=== PATIENT | male | born 1970 | race Caucasian/White ===

== ENCOUNTER 2018-10-13 16:28 | Emergency (ER) | payer SELFPAY ==
[~2018-10-13] VITALS: Ht 182.9 cm; Wt 77.7 kg
[2018-10-13 17:26] VITALS: BP 117/62
[2018-10-13] MEDS ORDERED: GABA-531 PO (17:33)
== END 2018-10-13 18:43 | disposition home or self-care (01) ==
LOC: EMS 16:30
DX: F11.10 Opioid abuse, uncomplicated (principal)

== ENCOUNTER 2018-10-26 14:01 | Emergency (ER) | payer OTHER ==
[~2018-10-26] VITALS: Ht 185.4 cm; Wt 75.0 kg
[~2018-10-26 14:01] MED LIST: GABA-531 PO
[2018-10-26] MEDS ORDERED: TRAZ-252 PO (14:10)
[2018-10-26] MEDS ORDERED: KETOROLAC TROMETHAMINE 60 MG/2 ML VIAL IM ONE (14:30)
[2018-10-26] MEDS: HydrOXYzine PAMOATE 50 MG CAPSULE PO ONE ×2 (14:46→14:55)
[2018-10-26 15:23] VITALS: BP 128/73
== END 2018-10-26 15:48 | disposition home or self-care (01) ==
LOC: EMS 14:02
DX: K40.90 Unilateral inguinal hernia, without obstruction or gangrene, not specified as recurrent (principal); R11.10 Vomiting, unspecified; F17.210 Nicotine dependence, cigarettes, uncomplicated; Z98.890 Other specified postprocedural states; Z79.899 Other long term (current) drug therapy
CPT/HCPCS: 96372; 99283; 99406; J1885

== ENCOUNTER 2020-10-19 21:12 | Inpatient (IN) | payer OTHER ==
[~2020-10-19] VITALS: Ht 185.4 cm; Wt 73.5 kg
[~2020-10-19 21:12] MED LIST changes: -GABA-531 PO; +TRAZ-252 PO
[2020-10-19] MEDS ORDERED: DEXTROSE 50%-WATER 25 GM/50 ML SYRINGE IVP ONE (21:45)
[2020-10-19 21:51] LABS: GLUCOMETER DEV NAME(LOC) ERT.5; GLUCOSE,POINT OF CARE 40 MG/DL (70-110)
[2020-10-19 22:26] LABS: BASOPHILS % (AUTO) 0.1 % (0.0-2.0); EOSINOPHILS % (AUTO) 0.1 % (1.0-6.0); HEMATOCRIT 28.2 % (41-53); HEMOGLOBIN 8.8 g/dL (13.5-17.5); LYMPHOCYTES # (AUTO) 2.9 K/uL (1.0-4.8); LYMPHOCYTES % (AUTO) 26.3 % (22.0-44.0); MEAN CORPUSCULAR HEMOGLOBIN 23.8 pg (26.0-34.0); MEAN CORPUSCULAR HGB CONC 31.1 G/dL (31.0-37.0); MEAN CORPUSCULAR VOLUME 77 fL (80-100); MONOCYTES # (AUTO) 0.8 K/uL (0.1-1.0); MONOCYTES % (AUTO) 7.3 % (2.0-9.0); NEUTROPHILS # (AUTO) 7.2 K/uL (1.8-7.7); NEUTROPHILS % (AUTO) 66.2 % (40.0-70.0); PLATELET COUNT (AUTO) 372 K/uL (150-450); RED BLOOD CELL COUNT(AUTO) 3.68 MIL/uL (4.50-5.90); RED CELL DISTRIBUTION WIDTH 17.9 % (11.5-14.5)
[2020-10-19 22:35] LABS: APPEARANCE,URINE CLEAR (CLEAR); BILIRUBIN,URINE NEGATIVE (NEGATIVE); GLUCOSE, URINE (UA) 250 mg/dL (NEGATIVE); KETONES,URINE NEGATIVE (NEGATIVE); LEUKOCYTE ESTERASE ,URINE NEGATIVE (NEGATIVE); NITRATE,URINE NEGATIVE (NEGATIVE); OCCULT BLOOD,URINE LARGE (NEGATIVE); PROTEIN,URINE SEE CONFIRM (NEGATIVE); UROBILINOGEN,URINE 0.2 mg/dL (<=1.0)
[2020-10-19 22:40] LABS: PROTHROMBIN TIME 10.6 SEC (9.4-11.6)
[2020-10-19 22:43] LABS: SULFOSALICYLIC ACID,URINE 4+ (Negative)
[2020-10-19] MEDS ORDERED: NALOXONE HCL 1 MG/ML 2 ML SYG IVP ONE (22:45)
[2020-10-19 22:51] LABS: AMPHET/METH SCREEN,URINE NEGATIVE (NEGATIVE); BARBITURATE SCREEN, URINE NEGATIVE (NEGATIVE); BENZODIAZEPINES SCREEN,URINE POSITIVE (NEGATIVE); CANNABINOID SCREEN,URINE POSITIVE (NEGATIVE); COCAINE SCREEN,URINE NEGATIVE (NEGATIVE); METHADONE SCREEN, URINE POSITIVE (NEGATIVE); OPIATE SCREEN,URINE POSITIVE (NEGATIVE); PHENCYCLIDINE SCREEN,URINE NEGATIVE (NEGATIVE)
[2020-10-19 22:54] LABS: GLUCOMETER DEV NAME(LOC) ERT.5; GLUCOSE,POINT OF CARE 67 MG/DL (70-110)
[2020-10-19 22:58] LABS: RBC,URINE 0-2 /HPF (0-2)
[2020-10-19 22:59] LABS: BACTERIA,URINE Rare /HPF (None Seen)
[2020-10-19 23:11] LABS: B-TYPE NATRIURETIC PEPTIDE 114 pg/mL (0-100)
[2020-10-19 23:22] LABS: ALANINE AMINOTRANSFERASE 33 U/L (12-78); ALBUMIN 0.7 g/dL (3.4-5.0); ALKALINE PHOSPHATASE 141 U/L (46-116); ANION GAP 6 mmol/L (8-16); ASPARTATE AMINOTRANSFERASE 71 U/L (15-37); BILIRUBIN,TOTAL 0.1 mg/dL (0.1-1.0); CALCIUM, TOTAL 7.2 mg/dL (8.8-10.5); CARBON DIOXIDE 28 mmol/L (22-29); CHLORIDE 108 mmol/L (98-107); CREATINE KINASE, TOTAL ONLY 972 U/L (39-308); CREATININE 2.12 mg/dL (0.60-1.30); GLOMERULAR FILTR. RATE CALC 34 mL/min (>60); GLUCOSE,RANDOM 53 mg/dL (70-110); PHOSPHORUS 3.5 mg/dL (2.5-4.9); SODIUM SERUM 142 mmol/L (136-145); TOTAL PROTEIN, SERUM 4.9 g/dL (6.4-8.2); UREA NITROGEN, BLOOD 21 mg/dL (7-18)
[2020-10-19 23:22] LABS: COVID AG,FIA SOURCE NASOPHARYNGEAL
[2020-10-19 23:24] LABS: POTASSIUM 2.4 mmol/L (3.5-5.1)
[2020-10-19] MEDS ORDERED: SODIUM CHLORIDE 0.9% 1,000 ML IV ONE (23:30)
[2020-10-19] MEDS ORDERED: MAGNESIUM SULFATE 1 GM in DEXTROSE 5%-WATER 50 ML IV ONE (23:45)
[2020-10-20] MEDS: POTASSIUM CHLORIDE 20 MEQ ER TABLET PO PRN ×2 (00:04→05:34)
[2020-10-20] MEDS: POTASSIUM CHL 10 MEQ/WATER 50 ML IV PRN ×4 (00:07→11:27)
[2020-10-20] MEDS ORDERED: DEXTROSE 50%-WATER 25 GM/50 ML SYRINGE IVP ONE (00:30)
[2020-10-20 00:36] LABS: GLUCOMETER DEV NAME(LOC) ERT.5; GLUCOSE,POINT OF CARE 50 MG/DL (70-110)
[2020-10-20] MEDS ORDERED: NALOXONE HCL 1 MG/ML 2 ML SYG IVP ONE (03:15)
[2020-10-20] MEDS ORDERED: DEXTROSE 40% LEMON 37.5 GM/TUBE GEL [15 GM GLUCOSE] PO ONE (04:00)
[2020-10-20] MEDS ORDERED: GLUCAGON,HUMAN RECOMBINANT 1 MG VIAL IVP PRN (04:45)
[2020-10-20 05:09] LABS: CALCIUM, TOTAL 7.9 mg/dL (8.8-10.5); CREATININE 1.94 mg/dL (0.60-1.30); MAGNESIUM 2.2 mg/dL (1.80-2.40)
[2020-10-20 05:13] LABS: POTASSIUM 2.9 mmol/L (3.5-5.1)
[2020-10-20] MEDS: DEXTROSE 50%-WATER 25 GM/50 ML SYRINGE IVP PRN ×4 (06:03→20:20)
[2020-10-20 07:20] LABS: GLUCOMETER DEV NAME(LOC) ERT.5; GLUCOSE,POINT OF CARE 89 MG/DL (70-110)
[2020-10-20] MEDS: NALOXONE HCL 0.4 MG/ML VIAL IVP PRN ×2 (07:40→15:00)
[2020-10-20 08:33] LABS: GLUCOMETER DEV NAME(LOC) ERT.5; GLUCOSE,POINT OF CARE 70 MG/DL (70-110)
[2020-10-20 09:59] LABS: GLUCOMETER DEV NAME(LOC) ERT.5; GLUCOSE,POINT OF CARE 63 MG/DL (70-110)
[2020-10-20 11:12] LABS: CALCIUM, TOTAL 7.2 mg/dL (8.8-10.5); CREATININE 1.9 mg/dL (0.60-1.30); PHOSPHORUS 3.8 mg/dL (2.5-4.9)
[2020-10-20 11:14] LABS: POTASSIUM 2.3 mmol/L (3.5-5.1)
[2020-10-20] MEDS: POTASSIUM CHL 10 MEQ/WATER 50 ML IV SCH ×6 (11:57→17:22)
[2020-10-20] MEDS: DEXTROSE 5%-0.45% SODIUM CHL 1,000 ML IV SCH (11:57)
[2020-10-20 12:44] LABS: GLUCOMETER DEV NAME(LOC) ERT.5; GLUCOSE,POINT OF CARE 77 MG/DL (70-110)
[2020-10-20 16:02] LABS: GLUCOMETER DEV NAME(LOC) ERT.5; GLUCOSE,POINT OF CARE 55 MG/DL (70-110)
[2020-10-20 16:22] LABS: GLUCOMETER DEV NAME(LOC) ERT.5; GLUCOSE,POINT OF CARE 124 MG/DL (70-110)
[2020-10-20 17:23] LABS: GLUCOMETER DEV NAME(LOC) ERT.5; GLUCOSE,POINT OF CARE 96 MG/DL (70-110)
[2020-10-20 19:06] LABS: GLUCOMETER DEV NAME(LOC) ERT.5; GLUCOSE,POINT OF CARE 77 MG/DL (70-110)
[2020-10-20] MEDS ORDERED: POTASSIUM CHLORIDE 20 MEQ ER TABLET PO ONE ×2 (20:15→22:00)
[2020-10-20 20:16] LABS: GLUCOMETER DEV NAME(LOC) ERT.5; GLUCOSE,POINT OF CARE 70 MG/DL (70-110)
[2020-10-20 21:28] LABS: GLUCOMETER DEV NAME(LOC) ERT.5; GLUCOSE,POINT OF CARE 126 MG/DL (70-110)
[2020-10-20 23:15] LABS: GLUCOSE,POINT OF CARE 116 MG/DL (70-110)
[2020-10-20 23:49] LABS: GLUCOSE,POINT OF CARE 96 MG/DL (70-110)
[2020-10-21 01:46] LABS: GLUCOSE,POINT OF CARE 89 MG/DL (70-110)
[2020-10-21] MEDS: DEXTROSE 5%-0.45% SODIUM CHL 1,000 ML IV SCH (03:39)
[2020-10-21 03:57] LABS: GLUCOSE,POINT OF CARE 68 MG/DL (70-110)
[2020-10-21] MEDS: DEXTROSE 50%-WATER 25 GM/50 ML SYRINGE IVP PRN (04:07)
[2020-10-21] MEDS: PIPERACILLIN/TAZO 3.375 GM/D5W 50 ML IV SCH ×3 (04:28→18:54)
[2020-10-21] MEDS: CLINDAMYCIN 600 MG/D5% WATER 50 ML IV SCH ×3 (04:28→21:59)
[2020-10-21] MEDS ORDERED: POTASSIUM CHLORIDE 20 MEQ ER TABLET PO ONE (05:00)
[2020-10-21 05:22] LABS: BASOPHILS % (AUTO) 0.8 % (0.0-2.0); EOSINOPHILS % (AUTO) 0.2 % (1.0-6.0); HEMATOCRIT 31.2 % (41-53); HEMOGLOBIN 9.4 g/dL (13.5-17.5); LYMPHOCYTES # (AUTO) 3.4 K/uL (1.0-4.8); LYMPHOCYTES % (AUTO) 23.8 % (22.0-44.0); MEAN CORPUSCULAR HEMOGLOBIN 23.7 pg (26.0-34.0); MEAN CORPUSCULAR HGB CONC 30.3 G/dL (31.0-37.0); MEAN CORPUSCULAR VOLUME 78 fL (80-100); MONOCYTES # (AUTO) 0.7 K/uL (0.1-1.0); MONOCYTES % (AUTO) 5.1 % (2.0-9.0); NEUTROPHILS # (AUTO) 10.1 K/uL (1.8-7.7); NEUTROPHILS % (AUTO) 70.1 % (40.0-70.0); PLATELET COUNT (AUTO) 386 K/uL (150-450); RED BLOOD CELL COUNT(AUTO) 3.98 MIL/uL (4.50-5.90); RED CELL DISTRIBUTION WIDTH 18.1 % (11.5-14.5)
[2020-10-21 05:30] LABS: CALCIUM, TOTAL 7.4 mg/dL (8.8-10.5); CREATININE 1.73 mg/dL (0.60-1.30); MAGNESIUM 1.9 mg/dL (1.80-2.40); POTASSIUM 3.3 mmol/L (3.5-5.1)
[2020-10-21 05:33] LABS: GLUCOSE,POINT OF CARE 140 MG/DL (70-110)
[2020-10-21] MEDS ORDERED: VANCOMYCIN HCL 1.25 GM in DEXTROSE 5%-WATER 250 ML IV ONE (06:00)
[2020-10-21 06:20] LABS: CREATININE,URINE RANDOM 24.1 mg/dL (30.0-125.0)
[2020-10-21 06:36] LABS: ALANINE AMINOTRANSFERASE 26 U/L (12-78); ALKALINE PHOSPHATASE 126 U/L (46-116); ANION GAP 8 mmol/L (8-16); ASPARTATE AMINOTRANSFERASE 47 U/L (15-37); BILIRUBIN,TOTAL 0.1 mg/dL (0.1-1.0); C-REACTIVE PROTEIN QUANT 6.22 mg/dL (0.00-0.30); CALCIUM, TOTAL 7.3 mg/dL (8.8-10.5); CARBON DIOXIDE 24 mmol/L (22-29); CHLORIDE 112 mmol/L (98-107); CREATININE 1.71 mg/dL (0.60-1.30); FERRITIN 406 ng/mL (26-388); GLOMERULAR FILTR. RATE CALC 43 mL/min (>60); GLUCOSE,RANDOM 133 mg/dL (70-110); LACTATE DEHYDROGENASE 194 U/L (85-227); POTASSIUM 3.3 mmol/L (3.5-5.1); SODIUM SERUM 144 mmol/L (136-145); TOTAL PROTEIN, SERUM 4.8 g/dL (6.4-8.2); UREA NITROGEN, BLOOD 13 mg/dL (7-18)
[2020-10-21 06:48] LABS: GLUCOSE,POINT OF CARE 108 MG/DL (70-110)
[2020-10-21 06:50] LABS: ALBUMIN < 0.6 g/dL (3.4-5.0)
[2020-10-21] MEDS ORDERED: SODIUM CHLORIDE 77 MEQ in DEXTROSE 10%-WATER 1,000 ML IV SCH (09:00)
[2020-10-21] MEDS: DEXTROSE 10%-WATER 1,000 ML IV SCH ×2 (09:16→21:59)
[2020-10-21 09:19] LABS: GLUCOSE,POINT OF CARE 78 MG/DL (70-110)
[2020-10-21 10:38] LABS: GLUCOSE,POINT OF CARE 100 MG/DL (70-110)
[2020-10-21 12:33] LABS: GLUCOSE,POINT OF CARE 117 MG/DL (70-110)
[2020-10-21 14:19] VITALS: BP 106/73
[2020-10-21 15:55] VITALS: BP 113/72
[2020-10-21 20:01] VITALS: BP 129/75
[2020-10-21 20:09] LABS: GLUCOMETER DEV NAME(LOC) 5N.1C; GLUCOSE,POINT OF CARE 127 MG/DL (70-110)
[2020-10-21] MEDS: VANCOMYCIN HCL 500 MG in DEXTROSE 5%-WATER 100 ML IV SCH (20:51)
[2020-10-22 00:08] VITALS: BP 103/59
[2020-10-22] MEDS: PIPERACILLIN/TAZO 3.375 GM/D5W 50 ML IV SCH ×3 (00:38→11:10)
[2020-10-22 01:33] LABS: GLUCOMETER DEV NAME(LOC) 5N.3; GLUCOSE,POINT OF CARE 87 MG/DL (70-110)
[2020-10-22 04:44] VITALS: BP 125/81
[2020-10-22] MEDS: CLINDAMYCIN 600 MG/D5% WATER 50 ML IV SCH (06:07)
[2020-10-22] MEDS: DEXTROSE 10%-WATER 1,000 ML IV SCH (06:12)
[2020-10-22 08:11] VITALS: BP 115/72
[2020-10-22] MEDS: VANCOMYCIN HCL 500 MG in DEXTROSE 5%-WATER 100 ML IV SCH ×2 (08:18→22:01)
[2020-10-22] MEDS: ONDANSETRON HCL 4 MG/2 ML VIAL IVP PRN (08:20)
[2020-10-22] MEDS ORDERED: ONDANSETRON HCL 4 MG/2 ML VIAL IM PRN (08:30)
[2020-10-22 12:39] VITALS: BP 118/69
[2020-10-22 13:59] LABS: GLUCOMETER DEV NAME(LOC) 5N.1C; GLUCOSE,POINT OF CARE 111 MG/DL (70-110)
[2020-10-22 14:23] LABS: BASOPHILS % (AUTO) 0.4 % (0.0-2.0); EOSINOPHILS % (AUTO) 0.3 % (1.0-6.0); HEMATOCRIT 35.1 % (41-53); HEMOGLOBIN 10.6 g/dL (13.5-17.5); LYMPHOCYTES # (AUTO) 2.5 K/uL (1.0-4.8); MEAN CORPUSCULAR HEMOGLOBIN 23.6 pg (26.0-34.0); MEAN CORPUSCULAR HGB CONC 30.2 G/dL (31.0-37.0); MEAN CORPUSCULAR VOLUME 78 fL (80-100); MONOCYTES # (AUTO) 0.8 K/uL (0.1-1.0); MONOCYTES % (AUTO) 6.5 % (2.0-9.0); NEUTROPHILS # (AUTO) 8.2 K/uL (1.8-7.7); NEUTROPHILS % (AUTO) 70.8 % (40.0-70.0); PLATELET COUNT (AUTO) 355 K/uL (150-450); RED CELL DISTRIBUTION WIDTH 18.3 % (11.5-14.5)
[2020-10-22 14:44] LABS: ALANINE AMINOTRANSFERASE 19 U/L (12-78); ALKALINE PHOSPHATASE 137 U/L (46-116); ANION GAP 7 mmol/L (8-16); ASPARTATE AMINOTRANSFERASE 27 U/L (15-37); BILIRUBIN,TOTAL 0.1 mg/dL (0.1-1.0); C-REACTIVE PROTEIN QUANT 2.54 mg/dL (0.00-0.30); CALCIUM, TOTAL 7.5 mg/dL (8.8-10.5); CARBON DIOXIDE 24 mmol/L (22-29); CHLORIDE 107 mmol/L (98-107); CREATININE 1.69 mg/dL (0.60-1.30); FERRITIN 388 ng/mL (26-388); GLOMERULAR FILTR. RATE CALC 44 mL/min (>60); GLUCOSE,RANDOM 128 mg/dL (70-110); PHOSPHORUS 2.7 mg/dL (2.5-4.9); POTASSIUM 3.3 mmol/L (3.5-5.1); SODIUM SERUM 138 mmol/L (136-145); UREA NITROGEN, BLOOD 15 mg/dL (7-18)
[2020-10-22 14:51] LABS: ALBUMIN < 0.6 g/dL (3.4-5.0)
[2020-10-22] MEDS ORDERED: POTASSIUM CHLORIDE 20 MEQ ER TABLET PO ONE (15:00)
[2020-10-22 16:00] VITALS: BP 123/71
[2020-10-22 20:27] LABS: GLUCOMETER DEV NAME(LOC) 5N.3; GLUCOSE,POINT OF CARE 103 MG/DL (70-110)
[2020-10-22 20:28] VITALS: BP 123/71
[2020-10-23 00:20] VITALS: BP 117/64
[2020-10-23] MEDS: DEXTROSE 10%-WATER 1,000 ML IV SCH (05:26)
[2020-10-23 07:20] LABS: GLUCOMETER DEV NAME(LOC) 5N.1C; GLUCOSE,POINT OF CARE 92 MG/DL (70-110)
[2020-10-23] MEDS: MULTIVITAMINS WITH MINERALS, THERAPEUTIC TABLET PO SCH (07:45)
[2020-10-23] MEDS: VANCOMYCIN HCL 500 MG in DEXTROSE 5%-WATER 100 ML IV SCH ×2 (07:45→21:06)
[2020-10-23] MEDS: THIAMINE 100 MG TABLET PO SCH (07:45)
[2020-10-23] MEDS: ONDANSETRON HCL 4 MG/2 ML VIAL IVP PRN (07:57)
[2020-10-23 08:13] VITALS: BP 140/60
[2020-10-23 10:02] LABS: BASOPHILS % (AUTO) 0.3 % (0.0-2.0); EOSINOPHILS % (AUTO) 0.1 % (1.0-6.0); HEMATOCRIT 33.9 % (41-53); HEMOGLOBIN 10.3 g/dL (13.5-17.5); LYMPHOCYTES # (AUTO) 1.9 K/uL (1.0-4.8); LYMPHOCYTES % (AUTO) 15.4 % (22.0-44.0); MEAN CORPUSCULAR HEMOGLOBIN 23.6 pg (26.0-34.0); MEAN CORPUSCULAR HGB CONC 30.4 G/dL (31.0-37.0); MEAN CORPUSCULAR VOLUME 77 fL (80-100); MONOCYTES # (AUTO) 0.6 K/uL (0.1-1.0); MONOCYTES % (AUTO) 4.6 % (2.0-9.0); NEUTROPHILS # (AUTO) 9.7 K/uL (1.8-7.7); NEUTROPHILS % (AUTO) 79.6 % (40.0-70.0); PLATELET COUNT (AUTO) 417 K/uL (150-450); RED BLOOD CELL COUNT(AUTO) 4.38 MIL/uL (4.50-5.90); RED CELL DISTRIBUTION WIDTH 18.9 % (11.5-14.5)
[2020-10-23 10:29] LABS: ALANINE AMINOTRANSFERASE 18 U/L (12-78); ALBUMIN < 0.6 g/dL (3.4-5.0); ALKALINE PHOSPHATASE 128 U/L (46-116); ANION GAP 9 mmol/L (8-16); ASPARTATE AMINOTRANSFERASE 23 U/L (15-37); BILIRUBIN,TOTAL 0.1 mg/dL (0.1-1.0); C-REACTIVE PROTEIN QUANT 0.99 mg/dL (0.00-0.30); CALCIUM, TOTAL 7.3 mg/dL (8.8-10.5); CARBON DIOXIDE 23 mmol/L (22-29); CHLORIDE 105 mmol/L (98-107); CREATININE 1.63 mg/dL (0.60-1.30); FERRITIN 376 ng/mL (26-388); GLOMERULAR FILTR. RATE CALC 45 mL/min (>60); GLUCOSE,RANDOM 105 mg/dL (70-110); PHOSPHORUS 2.4 mg/dL (2.5-4.9); SODIUM SERUM 137 mmol/L (136-145); UREA NITROGEN, BLOOD 13 mg/dL (7-18); VANCOMYCIN,RANDOM 29.7 mcg/mL (25.0-50.0)
[2020-10-23 11:01] LABS: GLUCOMETER DEV NAME(LOC) 5N.1C; GLUCOSE,POINT OF CARE 90 MG/DL (70-110)
[2020-10-23] MEDS ORDERED: MAGNESIUM SULFATE 4 GM/WATER 100 ML IV ONE (11:45)
[2020-10-23] MEDS ORDERED: POTASSIUM CHLORIDE 20 MEQ ER TABLET PO ONE (11:45)
[2020-10-23] MEDS ORDERED: SODIUM PHOS,M-BASIC-D-BASIC 30 MEQ in DEXTROSE 5%-WATER 150 ML IV ONE (11:45)
[2020-10-23] MEDS: POTASSIUM CHLORIDE 20 MEQ ER TABLET PO ONE ×2 (12:00→12:18)
[2020-10-23 15:31] VITALS: BP 129/76
[2020-10-24] MEDS: DEXTROSE 10%-WATER 1,000 ML IV SCH (01:51)
[2020-10-24 05:07] LABS: HIV 1-2 SCREEN 4TH GEN W/RFLX Non Reactive (Non Reactive)
[2020-10-24] MEDS: MULTIVITAMINS WITH MINERALS, THERAPEUTIC TABLET PO SCH (07:54)
[2020-10-24] MEDS: THIAMINE 100 MG TABLET PO SCH (07:54)
[2020-10-24] MEDS: VANCOMYCIN HCL 500 MG in DEXTROSE 5%-WATER 100 ML IV SCH ×2 (07:55→23:39)
[2020-10-24 08:18] VITALS: BP 148/82
[2020-10-24 11:24] VITALS: BP 157/92
[2020-10-24 11:42] LABS: GLUCOMETER DEV NAME(LOC) 5N.1C; GLUCOSE,POINT OF CARE 89 MG/DL (70-110)
[2020-10-24 15:26] VITALS: BP 147/93
[2020-10-24] MEDS ORDERED: POTASSIUM CHLORIDE 20 MEQ ER TABLET PO ONE (16:00)
[2020-10-24 18:42] LABS: GLUCOMETER DEV NAME(LOC) 5N.1C; GLUCOSE,POINT OF CARE 86 MG/DL (70-110)
[2020-10-24 19:18] VITALS: BP 152/91
[2020-10-24 21:29] LABS: GLUCOMETER DEV NAME(LOC) 5N.3; GLUCOSE,POINT OF CARE 89 MG/DL (70-110)
[2020-10-24 21:29] LABS: GLUCOMETER DEV NAME(LOC) 5N.3; GLUCOSE,POINT OF CARE 97 MG/DL (70-110)
[2020-10-25 01:13] VITALS: BP 112/61
[2020-10-25] MEDS: ONDANSETRON HCL 4 MG/2 ML VIAL IVP PRN (04:06)
[2020-10-25] MEDS: VANCOMYCIN HCL 500 MG in DEXTROSE 5%-WATER 100 ML IV SCH (10:12)
[2020-10-25] MEDS: THIAMINE 100 MG TABLET PO SCH (10:13)
[2020-10-25] MEDS: MULTIVITAMINS WITH MINERALS, THERAPEUTIC TABLET PO SCH (10:13)
[2020-10-25 12:00] VITALS: BP 127/70
[2020-10-25 12:21] LABS: GLUCOMETER DEV NAME(LOC) 5N.3; GLUCOSE,POINT OF CARE 125 MG/DL (70-110)
[2020-10-25] MEDS: METHADONE HCL 10 MG TABLET PO SCH (13:14)
[2020-10-25] MEDS ORDERED: *CLINICAL-LEVOFLOXACIN ORAL DOSING CLINICAL ONE (13:15)
[2020-10-25] MEDS: CLINDAMYCIN HCL 300 MG CAPSULE PO SCH ×2 (15:03→23:18)
[2020-10-25] MEDS: LEVOFLOXACIN 500 MG TABLET PO SCH (15:03)
[2020-10-25 15:13] LABS: BASOPHILS % (AUTO) 0.2 % (0.0-2.0); EOSINOPHILS % (AUTO) 0.2 % (1.0-6.0); HEMATOCRIT 31.1 % (41-53); HEMOGLOBIN 9.5 g/dL (13.5-17.5); LYMPHOCYTES % (AUTO) 28.9 % (22.0-44.0); MEAN CORPUSCULAR HEMOGLOBIN 23.2 pg (26.0-34.0); MEAN CORPUSCULAR HGB CONC 30.4 G/dL (31.0-37.0); MEAN CORPUSCULAR VOLUME 76 fL (80-100); MONOCYTES % (AUTO) 7.3 % (2.0-9.0); NEUTROPHILS # (AUTO) 8.7 K/uL (1.8-7.7); NEUTROPHILS % (AUTO) 63.4 % (40.0-70.0); PLATELET COUNT (AUTO) 468 K/uL (150-450); RED BLOOD CELL COUNT(AUTO) 4.07 MIL/uL (4.50-5.90); RED CELL DISTRIBUTION WIDTH 18.5 % (11.5-14.5)
[2020-10-25 15:45] LABS: ALANINE AMINOTRANSFERASE 18 U/L (12-78); ALBUMIN 0.6 g/dL (3.4-5.0); ALKALINE PHOSPHATASE 108 U/L (46-116); ANION GAP 7 mmol/L (8-16); ASPARTATE AMINOTRANSFERASE 23 U/L (15-37); BILIRUBIN,TOTAL 0.1 mg/dL (0.1-1.0); CALCIUM, TOTAL 7.2 mg/dL (8.8-10.5); CARBON DIOXIDE 22 mmol/L (22-29); CHLORIDE 105 mmol/L (98-107); CREATININE 1.39 mg/dL (0.60-1.30); FERRITIN 388 ng/mL (26-388); GLOMERULAR FILTR. RATE CALC 55 mL/min (>60); GLUCOSE,RANDOM 97 mg/dL (70-110); PHOSPHORUS 2.7 mg/dL (2.5-4.9); POTASSIUM 3.3 mmol/L (3.5-5.1); SODIUM SERUM 134 mmol/L (136-145); THYROID STIMULATING HORMONE 6.56 uIU/mL (0.36-3.74); TOTAL PROTEIN, SERUM 4.8 g/dL (6.4-8.2); UREA NITROGEN, BLOOD 17 mg/dL (7-18)
[2020-10-25 15:47] LABS: C-REACTIVE PROTEIN QUANT < 0.05 mg/dL (0.00-0.30)
[2020-10-25 16:17] VITALS: BP 133/92
[2020-10-25] MEDS ORDERED: POTASSIUM CHLORIDE 20 MEQ ER TABLET PO ONE (16:30)
[2020-10-25 19:34] LABS: GLUCOMETER DEV NAME(LOC) 5N.3; GLUCOSE,POINT OF CARE 101 MG/DL (70-110)
[2020-10-25 20:00] VITALS: BP 130/77
[2020-10-25 22:03] LABS: GLUCOMETER DEV NAME(LOC) 6N.1; GLUCOSE,POINT OF CARE 103 MG/DL (70-110)
[2020-10-26 05:19] VITALS: BP 118/68
[2020-10-26] MEDS ORDERED: SODIUM CHLORIDE 0.9% 1,000 ML IV ONE (06:00)
[2020-10-26] MEDS ORDERED: MORPHINE SULFATE 2 MG/ML SYRINGE IVP PRN (06:00)
[2020-10-26 06:31] LABS: GLUCOMETER DEV NAME(LOC) 6S.1; GLUCOSE,POINT OF CARE 86 MG/DL (70-110)
[2020-10-26 07:41] VITALS: BP 123/71
[2020-10-26] MEDS: THIAMINE 100 MG TABLET PO SCH (08:23)
[2020-10-26] MEDS: MULTIVITAMINS WITH MINERALS, THERAPEUTIC TABLET PO SCH (08:23)
[2020-10-26] MEDS: METHADONE HCL 10 MG TABLET PO SCH (08:24)
[2020-10-26] MEDS: CLINDAMYCIN HCL 300 MG CAPSULE PO SCH ×2 (08:24→15:21)
[2020-10-26] MEDS: LEVOFLOXACIN 500 MG TABLET PO SCH (08:24)
[2020-10-26] MEDS ORDERED: POTASSIUM CHLORIDE 20 MEQ ER TABLET PO ONE (09:45)
[2020-10-26 12:14] LABS: GLUCOMETER DEV NAME(LOC) 6N.1; GLUCOSE,POINT OF CARE 89 MG/DL (70-110)
[2020-10-26] MEDS ORDERED: LEVO-72 PO (13:05)
[2020-10-26] MEDS ORDERED: CLIN300C10 PO (13:05)
[2020-10-26] MEDS ORDERED: METH10 PO (13:05)
[2020-10-26 15:27] VITALS: BP 117/75
[2020-10-28 12:06] LABS: HEPATITIS C AB (EIA) 9.4 s/co ratio (0.0-0.9); HEPATITIS C RT-PCR,QNT HCV Not Detected IU/mL
== END 2020-10-26 16:17 | disposition home or self-care (01) | DRG 812 ==
LOC: EMS 21:14 → 5N 10-21 13:31 → 6N 10-25 17:40
PROVIDERS: ADMIT Internal Medicine; ATTEND Internal Medicine
DX: T43.621A Poisoning by amphetamines, accidental (unintentional), initial encounter (principal); N17.0 Acute kidney failure with tubular necrosis; G92 Toxic encephalopathy; U07.1 COVID-19; T40.601A Poisoning by unspecified narcotics, accidental (unintentional), initial encounter; I49.2 Junctional premature depolarization; E83.39 Other disorders of phosphorus metabolism; E83.42 Hypomagnesemia; N04.9 Nephrotic syndrome with unspecified morphologic changes; E16.2 Hypoglycemia, unspecified; E87.6 Hypokalemia; D64.9 Anemia, unspecified; F15.90 Other stimulant use, unspecified, uncomplicated; L03.113 Cellulitis of right upper limb; F19.10 Other psychoactive substance abuse, uncomplicated; Z53.20 Procedure and treatment not carried out because of patient's decision for unspecified reasons; Z79.899 Other long term (current) drug therapy; Z87.441 Personal history of nephrotic syndrome; Z87.891 Personal history of nicotine dependence; Y92.89 Other specified places as the place of occurrence of the external cause; Z91.14 Patient's other noncompliance with medication regimen
CPT/HCPCS: 70450; 71045; 72125; 76770; 80048; 80053; 80074; 80202; 81001; 81002; 82533; 82550; 82570; 82728; 82948; 82962; 83615; 83735; 83880; 83930; 83935; 84100; 84132; 84133; 84145; 84156; 84300; 84443; 84484; 84540; 84681; 85025; 85379; 85610; 85730; 86038; 86140; 86160; 86225; 87040; 87389; 87522; 93005; 93306; 97162; 99291; G0480; J2270; J2310; J2405; J2543; J3370; J3475; J3480; J3490; J7030; J7060; 36415-L1; 36415-TC; X7700